=== PATIENT | male | born 1990 | race Hispanic/Latino ===

== ENCOUNTER 2019-03-28 21:58 | Emergency (ER) | payer BC ==
[2019-03-28] MEDS ORDERED: OCTYL 2-CYANOACRYLATE 1 EACH TP ONE (22:27)
[2019-03-28] MEDS ORDERED: IBUPROFEN 600 MG TABLET ONE (22:28)
== END 2019-03-28 23:10 | disposition home or self-care (01) ==
LOC: EDH 21:58
DX: S01.112A Laceration without foreign body of left eyelid and periocular area, initial encounter (principal); H60.502 Unspecified acute noninfective otitis externa, left ear; X58.XXXA Exposure to other specified factors, initial encounter; Y93.61 Activity, american tackle football; Y92.89 Other specified places as the place of occurrence of the external cause; Y99.8 Other external cause status
CPT/HCPCS: 12011